=== PATIENT | female | born 1985 | race Caucasian/White ===

== ENCOUNTER 2017-04-10 07:00 | Inpatient (IN) | payer OTHER ==
[~2017-04-10] VITALS: Ht 167.6 cm; Wt 59.0 kg
== END 2017-04-14 09:49 | disposition home or self-care (01) | DRG 743 ==
LOC: EDBD → SURG 07:00 → CIR.AMB 04-11 07:00 → EDSTATUS 04-11 07:00 → SURG 04-11 08:27 → O/R 04-11 08:27 → CIR.AMB 04-11 08:56 → SURG 04-11 13:20
PROVIDERS: Obstetrics & Gynecology
PROC: 0TNB0ZZ Release Bladder, Open Approach (ICD-10-PCS; 2017-04-11)
PROC: 0DNW0ZZ Release Peritoneum, Open Approach (ICD-10-PCS; 2017-04-11)
PROC: 0UT90ZZ Resection of Uterus, Open Approach (ICD-10-PCS; principal; 2017-04-11 07:00)
DX: N92.0 Excessive and frequent menstruation with regular cycle (principal); K66.8 Other specified disorders of peritoneum; N32.89 Other specified disorders of bladder; N73.6 Female pelvic peritoneal adhesions (postinfective)